=== PATIENT | female | born 1980 | race Caucasian/White ===

== ENCOUNTER 2016-08-31 10:17 | Emergency (ER) | payer OTHER ==
[~2016-08-31] VITALS: Ht 160 cm; Wt 67.8 kg
[~2016-08-31 10:17] MED LIST: CIPR-280 PO; SERT50TA PO
[2016-08-31 10:19] VITALS: Ht 160 cm; Wt 67.8 kg
--- NOTE | 2016-08-31 10:42 | NUR ---
MEDICATION TDAP, TORADOL AND ZOFRAN ODT ADMINISTERED
--- NOTE | 2016-08-31 10:43 | NUR ---
RADIOLOGY PT TO RADIOLOGY PER CART
[2016-08-31] MEDS ORDERED: ONDANSETRON ODT 4 MG TAB PO ONE (10:45)
[2016-08-31] MEDS ORDERED: KETOROLAC 60mg/2ml INJECTION IM ONE (10:45)
[2016-08-31] MEDS ORDERED: TETANUS,DIPHTH,a PERTUS (Tdap) 0.5 ML VIAL IM ONE (10:45)
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
--- NOTE | 2016-08-31 10:49 | NUR ---
RADIOLOGY PT FROM RADIOLOGY PER CART
--- NOTE | 2016-08-31 10:58 | NUR ---
REPORT RECEIVED FROM NIMISHA MINOR. CARE ASSUMED.
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
[2016-08-31] MEDS ORDERED: LIDOCAINE 1%/EPI 1:100,000 20ml MDV SQ ONE (11:30)
[2016-08-31] MEDS ORDERED: LIDOCAINE 1%/EPI 1:200,000 30 ML VIAL SQ ONE (11:30)
--- NOTE | 2016-08-31 11:45 | NUR ---
DR OLIVA MAY AT BEDSIDE TO SUTURE.
[2016-08-31] MEDS ORDERED: NEOMYCIN/POLYM/BACITR OINT PACKET TOP ONE (12:00)
[2016-08-31] MEDS ORDERED: HYDR-4246 PO (12:06)
[2016-08-31 12:15] VITALS: BP 113/74; PULSE 77; RESP 18; TEMP 99; O2SAT 98
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
== END 2016-08-31 12:15 | disposition home or self-care (01) ==
LOC: ED 10:17
DX: S71.111A Laceration without foreign body, right thigh, initial encounter (principal); W18.30XA Fall on same level, unspecified, initial encounter; Y93.9 Activity, unspecified; Y92.009 Unspecified place in unspecified non-institutional (private) residence as the place of occurrence of the external cause; Y99.8 Other external cause status
CPT/HCPCS: 90471; 90715; 96372

== ENCOUNTER 2016-09-28 05:59 | Observation (INO) ==
[2016-09-28] MEDS: SALINE FLUSH 10ml SYRINGE IV PRN ×2 (06:25→11:15)
[2016-09-28] MEDS ORDERED: NS 1,000 ML IV ONE (06:34)
[2016-09-28] MEDS ORDERED: KETOROLAC 30 MG/ML INJECTION IVP ONE (06:34)
[2016-09-28] MEDS ORDERED: MORPHINE SULFATE 4 MG SYRINGE IVP ONE (06:34)
[2016-09-28] MEDS ORDERED: ONDANSETRON 4 MG/2 ML INJECTION IVP ONE (06:34)
--- NOTE | 2016-09-28 06:47 | Emergency Department Report ---
Nausea/Vomiting/Diarrhea HPI - General Chief complaint: Abdominal Pain Stated complaint: vomiting Time Seen by Provider: 09/28/16 06:22 - History of Present Illness HPI Narrative: 36-year-old female presents with abdominal pain and nausea vomiting since approximately 11 PM last night. She and her son went out to eat and had chicken. They have both become ill with vomiting and cramping. She does not have a fever and does not think she had one during the night. She did have sweats especially when vomiting. No previous abdominal pathology. No trauma. Her is not sick and he did not eat at that restaurant with them. She's not had any previous episodes like this. Pain is quite severe in his left upper quadrant. - Related Data Home Medications Medication Instructions Recorded Confirmed Sertraline HCl [Zoloft] 75 mg PO DAILY #0 07/23/15 09/28/16 Buspirone [Buspar] 7.5 mg PO BID 09/28/16 09/28/16 Previous Rx's Medication Instructions Recorded DiphenhydrAMINE [Benadryl] 50 mg PO Q6H PRN cap 09/29/16 Hydrocodone/APAP 5/325 [Trosper 1 tab PO Q5HR PRN #20 tab 09/29/16 5/325] Ondansetron HCl 4 mg PO Q6HR PRN #20 tablet 09/29/16 Allergies Allergy/AdvReac Type Severity Reaction Status Date / Time No Known Drug Allergies Allergy Unknown Verified 08/31/16 10:27 Review of Systems All systems: reviewed and negative except as stated PFSH Patient Stated Medical History Gastroesophageal Reflux Yes: DURING Disease Hx Urinary Tract Infection Yes: HX OF Other Yes: HX OF KIDNEY INFECTIONS Surgical History: Negative Family History: Negative - Social History Smoking status: Former smoker Substance use type: does not use Alcohol intake frequency: does not drink Physical Exam - Limitations Limitations: no limitations - General General appearance: alert, in distress - Normal Exams: Head:: Normocephalic without trauma Eyes:: Pupils are PERRLA w/ EOMI, No scleral icterus, irritation, or foreign bodies noted Chest/Respirations:: Clear all west, with good airflow, and symmetry bilaterally Cardiovascular:: Regular rate and rhythm, without murmur or gallop, Pulses 2+ all extremities, capillary refill, <2 seconds all extremities Musculoskeletal:: No tenderness, or deformity noted, good range of motion, all extremities Neurological:: Patient is alert, and oriented, cranial nerves, motor/sensory/ cerebellar, exams w/o gross deficits, to observation Psychiatric:: Patient exhibits, appropriate attention, emotion and affect - Abdominal Exam Abdominal exam: Present: soft, tenderness, diminished bowel sounds. Absent: distention, guarding, rebound, rigidity, ascites, mass, pulsatile mass Abdominal tenderness: Present: RUQ, epigastrium Course Vital Signs Pulse Rate 60 09/28/16 10:35 Respiratory Rate 18 09/28/16 10:35 Blood Pressure 120/70 09/28/16 10:35 Pulse Oximetry 100 09/28/16 10:35 Temperature 98.4 F 09/29/16 08:00 Pulse Rate 63 09/29/16 08:00 Respiratory Rate 16 09/29/16 08:00 Blood Pressure 106/67 09/29/16 08:00 Pulse Oximetry 99 09/29/16 08:00 Nausea/Vomiting/Diarrhea - [facility] Narrative Medical decision making narrative: Normal saline given IV, 1 L. Patient also given Zofran 4 mg IV for nausea. Toradol 30 mg IV and morphine 4 mg IV given for pain. Labs obtained lipase 834, normal white count, CMP appropriate. UA was also appropriate. CT abdomen and pelvis obtained with no acute signs of infection or pseudocyst around pancreas. Hospitalist was contacted and patient was admitted to hospitalist service to be nothing by mouth, given IV fluid and followed. Patient is in agreement with this plan. - Differential Diagnosis Likely: traveler's diarrhea, food poisoning, gastroenteritis, drug-induced nausea and vomiting - Medical Records Attestation: I reviewed the patient's medical records. - Lab Data Attestation: I reviewed the patient's lab results. Result diagrams: 09/29/16 04:34 09/29/16 04:34 Lab Results 09/28/16 09/28/16 09/28/16 Range/Units 06:44 06:44 06:44 WBC 9.1 (4.5-11.0) T/MM3 RBC 4.47 (4.00-5.20) M/MM3 Hgb 13.5 (12-16) GM/DL Hct 40.2 (36-46) % MCV 89.9 (80-100) UM3 MCH 30.2 (26-34) UUG MCHC 33.6 (31-37) GM/DL RDW Std Deviation 42.3 (36.9-50.2) FL Plt Count 261 (130-400) T/MM3 MPV 9.9 (9.4-12.4) UM3 Immature Gran % (Auto) 0.3 (0.0-0.5) % Neut % (Auto) 68.2 H (33-66) % Lymph % (Auto) 23.0 (23-45) % [place] % (Auto) 7.3 (0-9.0) % Eos % (Auto) 1.0 (0-4) % Baso % (Auto) 0.2 (0-2) % Neut # 6.2 (1.8-7.7) T/MM3 Lymph # 2.1 (1-4.8) T/MM3 [place] # 0.7 (0-0.8) T/MM3 Eos # 0.1 (0-0.5) T/MM3 Baso # 0.0 (0-0.2) T/MM3 Abs Immat Gran (auto) 0.03 (0.00-0.03) T/MM3 Turbidity (0-20) Sodium (134-144) MEQ/L Potassium (3.6-5) MEQ/L Chloride (98-107) MEQ/L Carbon Dioxide (22-30) MEQ/L Anion Gap (5-15) MEQ/L BUN (7-17) MG/DL Creatinine (0.7-1.2) MG/DL GFR Calculation BUN/Creatinine Ratio (6-26) RATIO Glucose (65-110) MG/DL Calculated Osmolality (261-280) MOSM/KG Calcium (8.4-10.2) MG/DL Total Bilirubin (0.20-1.30) MG/DL Icterus Index (0-7) AST (14-36) U/L ALT (9-52) U/L Alkaline Phosphatase (38-126) U/L Total Protein (6.3-8.2) G/DL Albumin (3.5-5.0) G/DL Globulin (2.4-3.6) G/DL Albumin/Globulin Ratio (1.1-2.2) RATIO Lipase (23-300) U/L Plasma Lactate (0.6-2.2) MMOL/L Serum , Qual Negative (Negative) Specimen Hemolysis (0-25) Ur Collection Type Urine Color (YELLOW) Urine Clarity Urine pH (5.0-8.0) Ur Specific [place] (1.015-1.025) Urine Protein (NEGATIVE) Urine Glucose (UA) (NEGATIVE) Urine Ketones (NEGATIVE) Urine Occult Blood (NEGATIVE) Urine Nitrate (NEGATIVE) Urine Bilirubin (NEGATIVE) Urine Urobilinogen (NORMAL) EU/DL Ur Leukocyte Esterase (NEGATIVE) Urinalysis Comment H. pylori Antigen Cancelled 09/28/16 09/28/16 09/28/16 Range/Units 06:45 08:22 09:45 WBC (4.5-11.0) T/MM3 RBC (4.00-5.20) M/MM3 Hgb (12-16) GM/DL Hct (36-46) % MCV (80-100) UM3 MCH (26-34) UUG MCHC (31-37) GM/DL RDW Std Deviation (36.9-50.2) FL Plt Count (130-400) T/MM3 MPV (9.4-12.4) UM3 Immature Gran % (Auto) (0.0-0.5) % Neut % (Auto) (33-66) % Lymph % (Auto) (23-45) % [place] % (Auto) (0-9.0) % Eos % (Auto) (0-4) % Baso % (Auto) (0-2) % Neut # (1.8-7.7) T/MM3 Lymph # (1-4.8) T/MM3 [place] # (0-0.8) T/MM3 Eos # (0-0.5) T/MM3 Baso # (0-0.2) T/MM3 Abs Immat Gran (auto) (0.00-0.03) T/MM3 Turbidity < 20 (0-20) Sodium 143 (134-144) MEQ/L Potassium 3.7 (3.6-5) MEQ/L Chloride 109 H (98-107) MEQ/L Carbon Dioxide 24 (22-30) MEQ/L Anion Gap 10 (5-15) MEQ/L BUN 13.0 (7-17) MG/DL Creatinine 0.6 L (0.7-1.2) MG/DL GFR Calculation 114 BUN/Creatinine Ratio 22 (6-26) RATIO Glucose 103 (65-110) MG/DL Calculated Osmolality 275 (261-280) MOSM/KG Calcium 9.2 (8.4-10.2) MG/DL Total Bilirubin 0.40 (0.20-1.30) MG/DL Icterus Index < 2 (0-7) AST 19 (14-36) U/L ALT 39 (9-52) U/L Alkaline Phosphatase 68 (38-126) U/L Total Protein 6.6 (6.3-8.2) G/DL Albumin 4.2 (3.5-5.0) G/DL Globulin 2.4 (2.4-3.6) G/DL Albumin/Globulin Ratio 1.8 (1.1-2.2) RATIO Lipase 854 H (23-300) U/L Plasma Lactate 0.7 < 0.5 L (0.6-2.2) MMOL/L Serum , Qual (Negative) Specimen Hemolysis < 15 (0-25) Ur Collection Type Urine, clean catch Urine Color Yellow (YELLOW) Urine Clarity Clear Urine pH 6.5 (5.0-8.0) Ur Specific [place] 1.010 L (1.015-1.025) Urine Protein Negative (NEGATIVE) Urine Glucose (UA) Negative (NEGATIVE) Urine Ketones 2+ A (NEGATIVE) Urine Occult Blood Negative (NEGATIVE) Urine Nitrate Negative (NEGATIVE) Urine Bilirubin Negative (NEGATIVE) Urine Urobilinogen 0.2 (NORMAL) EU/DL Ur Leukocyte Esterase Negative (NEGATIVE) Urinalysis Comment Microscopic not ind. H. pylori Antigen - Radiology Data Attestation: I reviewed the patient's radiology results. Disposition Clinical Impression: Pancreatitis, Dehydration [place]position: 02 [place] [facility] [place] Condition: Stable Time of Disposition: 13:22 - Seen By: physician
[2016-09-28 06:49] LABS: QC Pregnancy Internal Control RED/CLEAR
[2016-09-28 06:51] LABS: Eosinophils # (Auto) 0.1 T/MM3 (0-0.5); Hematocrit 40.2 % (36-46); Hemoglobin 13.5 GM/DL (12-16); Immature Granulocyte % (Auto) 0.3 % (0.0-0.5); Lymphocytes # (Auto) 2.1 T/MM3 (1-4.8); Mean Corpuscular Hemoglobin 30.2 UUG (26-34); Mean Corpuscular Volume 89.9 UM3 (80-100); Mean Platelet Volume 9.9 UM3 (9.4-12.4); Monocytes % (Auto) 7.3 % (0-9.0); Neutrophils % (Auto) 68.2 % (33-66); Platelet Count 261 T/MM3 (130-400); RDW Standard Deviation 42.3 FL (36.9-50.2); Red Blood Count 4.47 M/MM3 (4.00-5.20); White Blood Count 9.1 T/MM3 (4.5-11.0)
[2016-09-28 07:00] LABS: Lactate - NMC 0.7 MMOL/L (0.6-2.2)
[2016-09-28 07:01] LABS: ALT - NMC 39 U/L (9-52); AST - NMC 19 U/L (14-36); Albumin - NMC 4.2 G/DL (3.5-5.0); Albumin/Globulin Ratio 1.8 RATIO (1.1-2.2); Alkaline Phosphatase - NMC 68 U/L (38-126); Anion Gap 10 MEQ/L (5-15); BUN/Creatinine Ratio 22 RATIO (6-26); CO2 - Carbon Dioxide - NMC 24 MEQ/L (22-30); Calcium - NMC 9.2 MG/DL (8.4-10.2); Chloride - NMC 109 MEQ/L (98-107); Globulin 2.4 G/DL (2.4-3.6); Glomerular Filtration Rate 114; Glucose - NMC 103 MG/DL (65-110); Lipase - NMC 854 U/L (23-300); NA - Sodium - NMC 143 MEQ/L (134-144); Osmolality,Calculated 275 MOSM/KG (261-280); Potassium 3.7 MEQ/L (3.6-5); TP - Total Protein - NMC 6.6 G/DL (6.3-8.2)
[2016-09-28] MEDS ORDERED: NS 100 ML ONE (07:43)
[2016-09-28] MEDS ORDERED: IOHEXOL 300mg/ml 100ml INJECTION ONE (07:43)
[2016-09-28] MEDS ORDERED: SALINE FLUSH 10ml SYRINGE ONE (07:44)
--- NOTE | 2016-09-28 08:10 | CT Scan Report ---
Indication: abd pain and n/v PROCEDURE: CT abdomen pelvis w con: Encounter: Initial Comparison: None Technique: Axial CT images were performed through the abdomen and pelvis after the administration of intravenous contrast. Coronal and sagittal two-dimensional reformats. Automated Exposure Control and Iterative Reconstruction dose reducing techniques were utilized. Contrast: Omnipaque 300 89 mL Findings: The lung bases are clear. The liver is normal. The gallbladder is unremarkable. The spleen, pancreas and adrenal glands are within normal limits. Left kidney is normal. Small probable cyst in the lower pole of the right kidney. No abdominal or pelvic lymphadenopathy. Bladder appears normal. No free fluid. Uterus and ovaries are normal for age. No evidence of a bowel obstruction. The appendix is normal. Bone windows are unremarkable. Impression: No acute disease process seen in the abdomen or pelvis. .
[2016-09-28 08:30] LABS: Add Microscopic for UA No; Clarity,Urine CLEAR; Color, Urine YELLOW (YELLOW); Leukocyte Esterase,Urine NEGATIVE (NEGATIVE); Nitrate,Urine NEGATIVE (NEGATIVE); PH,Urine 6.5 (5.0-8.0); Urine Microscopic (UA) Microscopic Not Ind.; Urobilinogen,Urine 0.2 EU/DL (NORMAL)
[2016-09-28] MEDS ORDERED: METOCLOPRAMIDE 10mg/2ml INJECTION IVP PRN (10:47)
[2016-09-28] MEDS: NS 1,000 ML IV SCH ×2 (11:16→21:24)
--- NOTE | 2016-09-28 11:16 | History & Physical Report ---
<Dyan Harding V - Last Filed: 09/28/16 10:54> History of Present Illness Date: 09/28/16 Chief complaint: Nausea, vomiting, diarrhea HPI: Patient is a 36 yr old female who presented to the ER this morning for acute evaluation of abdominal nausea and vomiting along with diarrhea. Symptoms started last evening around 11 p.m. and have been constant since that time. She states that she has had abdominal cramping that is intermittent. States that she was awake all night with these symptoms. She did eat chicken last evening at 7 p.m. and questions if this was the cause of her acute illness. Her son also is having some abdominal symptoms. Patient presented to the emergency room for further evaluation and treatment. Basic laboratory studies were obtained. The WBC count was found to be normal at 9.1, hemoglobin 13.5, hematocrit 40.2, neutrophils 68.2. Sodium is normal at 143 , potassium 3.7, BUN 13, creatinine 0.6. LFTs are normal, glucose 103. Lipase was found to be elevated at 854. Venous lactate was 0.7. Serum hCG is negative. Urinalysis showed 2+ ketones, otherwise unremarkable. Ct Abdominal did not reveal an acute abdominal process. Patient was given IV fluids, morphine, Zofran and Toradol. Given continued abdominal pain and nausea. Compared with elevated lipase. The hospitalist services were contacted and accepted patient for outpatient admission for further evaluation and treatment. Patient is seen initially while in the emergency room. She is alert, oriented and pleasant. She does report that she has been on a weight loss plan of exercise and decreased calorie intake for the past 4 months. She states that she has lost approximately 65 pounds during that time. She also notes over the last 6 months that she vomits frequently with meals. States that she is only able to eat about half of each meal and proceeds to vomit. Denies using any diet supplementation. Review of Systems All systems: reviewed and no additional remarkable complaints except as stated - Constitutional Constitutional: Present: anorexia, chills, weight loss (64 lbs over 4 months) - Gastrointestinal Gastrointestinal: Present: abdominal pain, diarrhea, nausea, vomiting - Genitourinary Menstruation: menses variable PFSH Depression Surgical History: 4. Colonoscopy with anal sphincter dilation- Dr Rosenberg - Social History Smoking status: Former smoker Substance use type: does not use Alcohol intake frequency: holidays/special occasions only Current occupation: Med aid at [employer] Current residence: Apartment/Private Home Social history: PCP- Previously Dr Alfaro, Currently Dr Becerril Medications Home Medications Medication Instructions Recorded Confirmed Type Sertraline HCl [Zoloft] 75 mg PO DAILY #0 07/23/15 09/28/16 History Buspirone [Buspar] 7.5 mg PO BID 09/28/16 09/28/16 History Allergies Allergy/AdvReac Type Severity Reaction Status Date / Time No Known Drug Allergies Allergy Unknown Verified 08/31/16 10:27 Exam Height: 1.55 m Weight: 68.9 kg - Constitutional Present: no acute distress - Routine HEENT Exam Head: Present: normocephalic, atraumatic Eye: Present: EOMI, PERRL - Routine Neck Exam Present: supple, full ROM - Routine Respiratory Exam Present: CTA bilaterally - Routine Cardiovascular Exam Present: RRR, S1, S2 - Routine Abdominal Exam Present: soft, tenderness (Epigastric) Comments: No specific abdominal guarding, however, patient does prefer to lay on her left side as this causes less discomfort - Routine Extremities Exam Present: full ROM - Routine Back/Spine/Pelvis Exam Back/Spine: Present: full ROM - Routine Skin Exam Present: intact, warm - Routine Neurological Exam Present: alert, oriented X3, CN II-XII intact - Routine Psychiatric Exam Present: normal affect, normal thought process Results - Labs CBC & Chem 7: 09/28/16 06:44 09/28/16 06:45 Assessment and Plan (1) Abdominal pain Current visit: Yes Status: Acute (2) Nausea & vomiting Current visit: Yes Status: Acute (3) Diarrhea Current visit: Yes Status: Acute (4) Abnormal weight loss Current visit: Yes Status: Acute (5) Elevated lipase Current visit: Yes Status: Acute Present on admission. Lipase- 854 (6) Depression Current visit: Yes Status: Chronic Assessment and Plan: Admit patient to patient observation under the care of Dr. Casey for acute abdominal pain, nausea, vomiting, diarrhea and elevated lipase. Will continue on IV fluids- NS at 100ml/hr for ongoing hydrations Obtain serum H. pylori as well as stool H. pylori for further evaluation. Obtain ultrasound of the gallbladder and right upper quadrant to rule out acute cholecystitis. Patient is at risk for this given her significant recent weight loss. Zofran, Reglan as needed for nausea, and morphine available as needed for pain control. May need to consider outpatient follow-up with general surgeon (she has seen Dr. Rosenberg in the past) for possible endoscopy. Given her difficulty with eating and vomiting after meals SCD to bilateral lower ext for DVT prophylaxis Recheck CBC, BMP and Lipase tomorrow morning to follow counts. Discuss further orders and plan of care with attending, Dr. Casey. At time of discharge medical care will return to patient's new primary care provider, Dr. Becerril Hospital Course Summary Disclaimer: The visit summary below is not to be considered part of the above Progress Note. Hospital Course: 09/28/16- Admission Admit patient to patient observation under the care of Dr. Casey for acute abdominal pain, nausea, vomiting, diarrhea and elevated lipase. Will continue on IV fluids- NS at 100ml/hr for ongoing hydrations Obtain serum H. pylori as well as stool H. pylori for further evaluation. Obtain ultrasound of the gallbladder and right upper quadrant to rule out acute cholecystitis. Patient is at risk for this given her significant recent weight loss. Zofran, Reglan as needed for nausea, and morphine available as needed for pain control. May need to consider outpatient follow-up with general surgeon (she has seen Dr. Rosenberg in the past) for possible endoscopy. Given her difficulty with eating and vomiting after meals SCD to bilateral lower ext for DVT prophylaxis Recheck CBC, BMP and Lipase tomorrow morning to follow counts. Discuss further orders and plan of care with attending, Dr. Casey. At time of discharge medical care will return to patient's new primary care provider, Dr. Becerril <Jose Guadalupe Casey - Last Filed: 09/28/16 19:00> History of Present Illness Date: 09/28/16 [facility] Patient Stated Medical History Gastroesophageal Reflux Yes: DURING Disease Hx Urinary Tract Infection Yes: HX OF Other Yes: HX OF KIDNEY INFECTIONS Depression Yes Exam Vital Signs: Temp Pulse Resp BP Pulse Ox 97.4 F 67 16 93/56 99 09/28/16 16:28 09/28/16 16:28 09/28/16 16:28 09/28/16 16:28 09/28/16 16:28 Height: 5 ft 1 in Weight: 71 kg Results - Labs CBC & Chem 7: 09/28/16 06:44 09/28/16 06:45 Assessment and Plan (1) Abdominal pain Current visit: Yes Status: Acute (2) Nausea & vomiting Problem details: Chonic nausea and vomiting with acute worsening since yesterday Current visit: Yes Status: Chronic (3) Diarrhea Current visit: Yes Status: Acute (4) Abnormal weight loss Problem details: Pt gives H.O weight loss of 6o pounds that she attributes to dieting but she has had early satiety and nausea before she started dieting. Current visit: Yes Status: Acute (5) Elevated lipase Current visit: Yes Status: Acute (6) Depression Current visit: Yes Status: Chronic Assessment and Plan: Pt seen and examined with Dyan at the ED. Pt states she became ill yesterday after eating chicken and her son/daughter has similar symptoms. She came and was found to be dehydrated and has elevated pancreatic enzymes. Pt has lost about 60 pounds, in a supervised program with her PCP, but has not been taking ursodiol to prevent gallstones. She has had post prandial emesis for months and early satiety. Plan 1) ? of acute gastroenteritis viral since a family member is affected or food poisoning. - Admit, hydrate recheck labs. . 2) Profound weight loss recently with nausea and post prandial vomiting, concerning for gastric outlet obstruction. - Check H Pylori Ag in stool. - May need EGD - Would check an upper GI prior to D/C - Check GB U/S with recent profound wt loss pt could have developed Gallstones - > and have pancreatitis due to this. 3) Borderline elevation of the pancreatic enzymes. - Recheck this PM. - Vigorous hydration. - Hospital Course Summary Disclaimer: The visit summary below is not to be considered part of the above Progress Note.
[2016-09-28] MEDS: MORPHINE SULFATE 2 MG SYRINGE IVP PRN ×3 (11:43→20:00)
--- NOTE | 2016-09-28 12:33 | Ultrasound Report ---
Indication: vomiting, weight loss, elevated Lipase PROCEDURE: US gall bladder: Encounter: Initial Comparison: CT abdomen and pelvis dated September 28, 2016 Technique: Grayscale and color Doppler sonographic imaging of the right upper quadrant of the abdomen was performed. Findings: Hepatic parenchyma is homogeneous without evidence for focal mass. The gallbladder is normal. There is no wall thickening, pericholecystic fluid, sonographic Thomas's sign or cholelithiasis. Both the intra and extrahepatic biliary system are of normal caliber with the common duct measuring 3 mm in dimension. Visualized portions of the head and body of the pancreas are unremarkable. The right kidney is present without collecting system dilatation. The right kidney measures 9.4 cm in length. Small 1.4 cm right renal simple cyst. Impression: Negative right upper quadrant sonogram. .
[2016-09-28] MEDS: ONDANSETRON 4 MG/2 ML INJECTION IVP PRN ×2 (13:35→19:59)
[2016-09-28 16:29] VITALS: RESP 16
[2016-09-28] MEDS: PANTOPRAZOLE 40 MG INJECTION IVP SCH (18:09)
[2016-09-28] MEDS: BUSPIRONE 15 MG TABLET PO SCH (19:59)
[2016-09-29] MEDS: ONDANSETRON 4 MG/2 ML INJECTION IVP PRN ×2 (02:18→09:51)
[2016-09-29] MEDS: MORPHINE SULFATE 2 MG SYRINGE IVP PRN (02:19)
[2016-09-29 05:25] LABS: Eosinophils # (Auto) 0.1 T/MM3 (0-0.5); Eosinophils % (Auto) 1.7 % (0-4); Hematocrit 36.6 % (36-46); Hemoglobin 11.7 GM/DL (12-16); Immature Granulocyte % (Auto) 0.2 % (0.0-0.5); Lymphocytes # (Auto) 1.7 T/MM3 (1-4.8); Lymphocytes % (Auto) 36.3 % (23-45); Mean Corpuscular Hemoglobin 29.7 UUG (26-34); Mean Corpuscular Volume 92.9 UM3 (80-100); Mean Platelet Volume 10.3 UM3 (9.4-12.4); Monocytes % (Auto) 8.6 % (0-9.0); Platelet Count 215 T/MM3 (130-400); RDW Standard Deviation 43.5 FL (36.9-50.2); Red Blood Count 3.94 M/MM3 (4.00-5.20); White Blood Count 4.8 T/MM3 (4.5-11.0)
[2016-09-29 05:35] LABS: ALT - NMC 36 U/L (9-52); AST - NMC 16 U/L (14-36); Albumin - NMC 3.2 G/DL (3.5-5.0); Albumin/Globulin Ratio 1.5 RATIO (1.1-2.2); Alkaline Phosphatase - NMC 48 U/L (38-126); Anion Gap 8 MEQ/L (5-15); BUN/Creatinine Ratio 13 RATIO (6-26); CO2 - Carbon Dioxide - NMC 24 MEQ/L (22-30); Chloride - NMC 110 MEQ/L (98-107); Globulin 2.1 G/DL (2.4-3.6); Glomerular Filtration Rate 114; Glucose - NMC 76 MG/DL (65-110); NA - Sodium - NMC 142 MEQ/L (134-144); Osmolality,Calculated 270 MOSM/KG (261-280); Potassium 3.3 MEQ/L (3.6-5); TP - Total Protein - NMC 5.3 G/DL (6.3-8.2)
[2016-09-29] MEDS: NS 1,000 ML IV SCH (08:12)
[2016-09-29] MEDS: PANTOPRAZOLE 40 MG INJECTION IVP SCH (08:13)
[2016-09-29] MEDS: BUSPIRONE 15 MG TABLET PO SCH (09:20)
[2016-09-29 09:52] VITALS: BP 106/67; PULSE 63; TEMP 98.4; O2SAT 99
--- NOTE | 2016-09-29 12:59 | Fluoroscopy Report ---
Indication:N/V Procedure:FL upper GI series UPPER GI WITH AIR CONTRAST: Technique: After ingesting air crystals, the patient swallowed thick and thin barium without difficulty. Fluoroscopic imaging was obtained in the upright LPO, supine AP, LPO, RPO, and right lateral positions. Findings: Esophagus: The esophagus is negative. Esophageal motility appears normal. The cricopharyngeus muscle relaxes completely. There is no Zenker's diverticulum. No hiatal hernia or gastroesophageal reflux is visualized. Stomach: The stomach is negative. It is normal in contour and appearance. The mucosal fold patterns appear normal. There is no obvious ulcer. There is no filling defect to suggest a mass. Duodenum: The duodenum is negative. The mucosal fold patterns are normal. There is no obvious ulcer. There is no filling defect to suggest a mass. The duodenal sweep crosses midline in a normal fashion. There is no malrotation or obstruction of the visualized portions of the small bowel. Impression: Negative upper GI. Fluoroscopy Dose: 73.28 (Cumulative air kerma) Jason Kelly RPA/PAULINOA performed this under my direct supervision. .
--- NOTE | 2016-09-29 14:24 | Progress Note ---
Subjective: F/U: Ab pain/nausea and vomiting Doing better today. Notes some mild nausea and ab pain, but much decreased from yesterday. Able to keep liquids in well. Appetite decreased. Breathing well. No f/c. Urinating well. Passing flatus. Objective Vital signs: Temperature 98.4 F 09/29/16 08:00 Pulse Rate 63 09/29/16 08:00 Respiratory Rate 16 09/29/16 08:00 Blood Pressure 106/67 09/29/16 08:00 Pulse Oximetry 99 09/29/16 08:00 Oxygen Delivery Method Room Air Weight: 72.5 kg - Constitutional Present: no acute distress, well nourished, well developed, cooperative - Routine HEENT Exam Head: Present: normocephalic, atraumatic Eye: Present: EOMI, PERRL ENT: Present: mucous membranes moist, nares patent - Routine Respiratory Exam Present: CTA bilaterally. Absent: respiratory distress, rhonchi, wheezes - Routine Cardiovascular Exam Present: RRR - Routine Abdominal Exam Present: soft, normoactive bowel sounds, non distended, non tender. Absent: guarding, firm - Routine Extremities Exam Present: no edema, pulses intact. Absent: cyanosis, clubbing - Routine Musculoskeletal Exam Musculoskeletal: Present: no clubbing or cyanosis, normal strength - Routine Skin Exam Present: intact, dry, warm - Routine Neurological Exam Present: alert, oriented X3, CN II-XII intact, vision grossly intact, hearing grossly intact. Absent: motor deficit - Routine Psychiatric Exam Present: normal affect, normal thought process, cooperative, good insight, good judgment Results - Labs CBC & Chem 7: 09/29/16 04:34 09/29/16 04:34 Labs: Laboratory Tests 09/28/16 19:50 Lipase 231 Assessment and Plan (1) Abdominal pain Current visit: Yes Status: Resolved (2) Nausea & vomiting Problem details: Chonic nausea and vomiting with acute worsening since yesterday Current visit: Yes Status: Resolved (3) Diarrhea Current visit: Yes Status: Resolved (4) Abnormal weight loss Problem details: Pt gives H.O weight loss of 6o pounds that she attributes to dieting but she has had early satiety and nausea before she started dieting. Current visit: Yes Status: Chronic (5) Elevated lipase Current visit: Yes Status: Resolved Present on admission. Lipase- 854 (6) Depression Current visit: Yes Status: Chronic Assessment and Plan: Will d/c to home. May return to work on Sat 10/03. Diet as tolerated, encourage fluid intake. Fiber to help bowel function. Zofran and [place] as needed - discussed side effects. F/U with Dr Muller in 1 week. See orders for details. Time spent with patient care and discharge greater than 30 minutes. - Sepsis Assessment - Evaluation Sepsis screening result: No Definite Risk Hospital Course Summary Disclaimer: The visit summary below is not to be considered part of the above Progress Note. Hospital Course: 09/28/16- Admission Admit patient to patient observation under the care of Dr. Casey for acute abdominal pain, nausea, vomiting, diarrhea and elevated lipase. Will continue on IV fluids- NS at 100ml/hr for ongoing hydrations Obtain serum H. pylori as well as stool H. pylori for further evaluation. Obtain ultrasound of the gallbladder and right upper quadrant to rule out acute cholecystitis. Patient is at risk for this given her significant recent weight loss. Zofran, Reglan as needed for nausea, and morphine available as needed for pain control. May need to consider outpatient follow-up with general surgeon (she has seen Dr. Rosenberg in the past) for possible endoscopy. Given her difficulty with eating and vomiting after meals SCD to bilateral lower ext for DVT prophylaxis Recheck CBC, BMP and Lipase tomorrow morning to follow counts. Discuss further orders and plan of care with attending, Dr. Casey. At time of discharge medical care will return to patient's new primary care provider, Dr. Becerril. 09/29/16 Doing better today. Notes some mild nausea and ab pain, but much decreased from yesterday. Able to keep liquids in well. Appetite decreased. Breathing well. No f/c. Urinating well. Passing flatus. Lipase normalized. Upper GI normal. Will d/c to home. May return to work on Sat 10/03. Diet as tolerated, encourage fluid intake. Fiber to help bowel function. Zofran and [place] as needed - discussed side effects. F/U with Dr Muller in 1 week. See orders for details.
--- NOTE | 2016-09-29 14:32 | Discharge Summary ---
Discharge Information Date of admission: 09/28/16 10:43 Anticipated date of discharge: 09/29/16 Attending Physician: Jose Guadalupe Casey MD Primary care physician: Dr Muller - Discharge Diagnosis (1) Abdominal pain Status: Resolved (2) Nausea & vomiting Problem Details: Chonic nausea and vomiting with acute worsening since yesterday Status: Resolved (3) Diarrhea Status: Resolved (4) Abnormal weight loss Problem Details: Pt gives H.O weight loss of 6o pounds that she attributes to dieting but she has had early satiety and nausea before she started dieting. Status: Chronic (5) Elevated lipase Status: Resolved (6) Depression Status: Chronic - Laboratory Labs: 09/29/16 04:34 09/29/16 04:34 Laboratory Tests 09/28/16 09/28/16 09/28/16 06:44 06:45 19:50 Lipase 854 H 231 Serum , Qual Negative - Radiology Radiology: Date of Exam: 09/29/16 Type of Exam(s): FL upper GI series Reason for Exam(s): N/V Indication:N/V Procedure:FL upper GI series UPPER GI WITH AIR CONTRAST: Technique: After ingesting air crystals, the patient swallowed thick and thin barium without difficulty. Fluoroscopic imaging was obtained in the upright LPO, supine AP, LPO, RPO, and right lateral positions. Findings: Esophagus: The esophagus is negative. Esophageal motility appears normal. The cricopharyngeus muscle relaxes completely. There is no Zenker's diverticulum. No hiatal hernia or gastroesophageal reflux is visualized. Stomach: The stomach is negative. It is normal in contour and appearance. The mucosal fold patterns appear normal. There is no obvious ulcer. There is no filling defect to suggest a mass. Duodenum: The duodenum is negative. The mucosal fold patterns are normal. There is no obvious ulcer. There is no filling defect to suggest a mass. The duodenal sweep crosses midline in a normal fashion. There is no malrotation or obstruction of the visualized portions of the small bowel. Impression: Negative upper GI. Fluoroscopy Dose: 73.28 (Cumulative air kerma) Jason Kelly RPA/RRA performed this under my direct supervision. . History of Present Illness HPI: Patient is a 36 yr old female who presented to the ER this morning for acute evaluation of abdominal nausea and vomiting along with diarrhea. Symptoms started last evening around 11 p.m. and have been constant since that time. She states that she has had abdominal cramping that is intermittent. States that she was awake all night with these symptoms. She did eat chicken last evening at 7 p.m. and questions if this was the cause of her acute illness. Her son also is having some abdominal symptoms. Patient presented to the emergency room for further evaluation and treatment. Basic laboratory studies were obtained. The WBC count was found to be normal at 9.1, hemoglobin 13.5, hematocrit 40.2, neutrophils 68.2. Sodium is normal at 143 , potassium 3.7, BUN 13, creatinine 0.6. LFTs are normal, glucose 103. Lipase was found to be elevated at 854. Venous lactate was 0.7. Serum hCG is negative. Urinalysis showed 2+ ketones, otherwise unremarkable. Ct Abdominal did not reveal an acute abdominal process. Patient was given IV fluids, morphine, Zofran and Toradol. Given continued abdominal pain and nausea. Compared with elevated lipase. The hospitalist services were contacted and accepted patient for outpatient admission for further evaluation and treatment. Patient is seen initially while in the emergency room. She is alert, oriented and pleasant. She does report that she has been on a weight loss plan of exercise and decreased calorie intake for the past 4 months. She states that she has lost approximately 65 pounds during that time. She also notes over the last 6 months that she vomits frequently with meals. States that she is only able to eat about half of each meal and proceeds to vomit. Denies using any diet supplementation. For complete details of the H&P, refer to that document. Objective Vital signs: Temperature 98.4 F 09/29/16 08:00 Pulse Rate 63 09/29/16 08:00 Respiratory Rate 16 09/29/16 08:00 Blood Pressure 106/67 09/29/16 08:00 Pulse Oximetry 99 09/29/16 08:00 Oxygen Delivery Method Room Air Weight: 72.5 kg Hospital Course This is a general summary of the patient's hospital course. For more details refer to the complete medical record. Hospital course: 09/28/16- Admission Admit patient to patient observation under the care of Dr. Casey for acute abdominal pain, nausea, vomiting, diarrhea and elevated lipase. Will continue on IV fluids- NS at 100ml/hr for ongoing hydrations Obtain serum H. pylori as well as stool H. pylori for further evaluation. Obtain ultrasound of the gallbladder and right upper quadrant to rule out acute cholecystitis. Patient is at risk for this given her significant recent weight loss. Zofran, Reglan as needed for nausea, and morphine available as needed for pain control. May need to consider outpatient follow-up with general surgeon (she has seen Dr. Rosenberg in the past) for possible endoscopy. Given her difficulty with eating and vomiting after meals SCD to bilateral lower ext for DVT prophylaxis Recheck CBC, BMP and Lipase tomorrow morning to follow counts. Discuss further orders and plan of care with attending, Dr. Casey. At time of discharge medical care will return to patient's new primary care provider, Dr. Becerril. 09/29/16 Doing better today. Notes some mild nausea and ab pain, but much decreased from yesterday. Able to keep liquids in well. Appetite decreased. Breathing well. No f/c. Urinating well. Passing flatus. Lipase normalized. Upper GI normal. Will d/c to home. May return to work on Sat 10/03. Diet as tolerated, encourage fluid intake. Fiber to help bowel function. Zofran and [place] as needed - discussed side effects. F/U with Dr Muller in 1 week. See orders for details. Time spent with patient: 25 - 35 minutes GI Prophylaxis: Protonix Discharge Plan - Med Rec/Dispo Referrals/Follow Up: ALEX MULLER [Physician] - 1 Week [place] Instructions: Gastroenteritis (GEN) Prescriptions: New DiphenhydrAMINE [Benadryl] 50 mg PO Q6H PRN cap PRN Reason: Itching Ondansetron HCl 4 mg PO Q6HR PRN #20 tablet PRN Reason: Nausea &/Or Vomiting Hydrocodone/APAP 5/325 [[place] 5/325] 1 tab PO Q5HR PRN #20 tab PRN Reason: Pain Continue Sertraline HCl [Zoloft] 75 mg PO DAILY #0 Buspirone [Buspar] 7.5 mg PO BID - Disposition 01 Discharged Home, Self-Care
--- NOTE | 2016-09-29 14:49 | Work/School Release ---
Work/School Release - Date Date: 09/29/16 - Work Release Remain off work/school for:: Ludivina James was hospitalized at [facility] from 09/28 until 09/29. She may return to work on Wednesday10/03/16.
[2016-09-29 15:57] VITALS: BMI 30.2
== END 2016-09-29 15:35 | disposition home or self-care (01) ==
LOC: MED 05:59 → ED 05:59 → MED 10:55
PROVIDERS: ADMIT Internal Medicine; ATTEND Internal Medicine